=== PATIENT | male | born 1980 | race African-American/Black ===

== ENCOUNTER 2022-12-11 09:59 | Emergency (ER) | payer OTHER ==
[~2022-12-11] VITALS: Ht 182.9 cm; Wt 99.0 kg
[2022-12-11 10:04] VITALS: TEMP 98.2; O2SAT 99
[2022-12-11 10:41] VITALS: BP 112/61; PULSE 76; RESP 14
[2022-12-11 11:02] LABS: BASOPHILS % 0.5 % (0.0-2.0); EOSINOPHILS % 2.7 % (0.0-5.0); LYMPHOCYTES % 18.9 % (20.0-50.0); MEAN CORPUSCULAR HEMOGLOBIN 15.8 pg (28.0-32.0); MEAN CORPUSCULAR HGB CONC 28.7 g/dL (31.0-37.0); MEAN PLATELET VOLUME 8.4 fl (7.4-10.4); MONOCYTES % 6.3 % (2.0-8.0); NEUTROPHILS % 71.6 % (40.0-76.0); PLATELET 202 x1000/uL (130-400); RED BLOOD CELL COUNT 1.88 mill/uL (4.7-6.1); RED CELL DISTRIBUTION WIDTH 22.3 % (11.6-14.6); WHITE BLOOD COUNT 5.9 x1000/uL (4.5-11.0)
[2022-12-11 11:14] LABS: CHLORIDE 108 mEq/L (98-107); INDEX HEMOLYSI 1 (1-3); INDEX ICTERIC 1 (1-4); INDEX LIPEMIC 1 (1-3); POTASSIUM 3.7 mEq/L (3.5-5.1); SODIUM 139 mEq/L (136-145)
[2022-12-11 11:20] LABS: ADD RBC MORPHOLOGY YES; DIFFERENTIAL COMMENT 1; HEMATOCRIT. 10.4 % (42.0-52.0)
[2022-12-11 11:25] LABS: ALANINE AMINOTRANSFERASE 10 IU/L (13-61); ALBUMIN 3.1 g/dL (3.4-5.0); ASPARTATE AMINOTRANSFERASE 31 IU/L (15-37); BILIRUBIN TOTAL 0.3 mg/dL (0.1-1.0); CALCIUM 8.6 mg/dL (8.5-10.1); CARBON DIOXIDE 29 mEq/L (21-32); CREATININE 0.9 mg/dL (0.6-1.3); GLUCOSE 103 mg/dL (70-105); TROPONIN I HIGH SENSITIVITY 50 ng/L (<78); UREA NITROGEN BLOOD 17 mg/dL (7-21)
[2022-12-11 11:42] LABS: ANISOCYTOSIS 3+; MICROCYTOSIS 3+; PLATELET ESTIMATE NORMAL
[2022-12-11 11:43] LABS: HYPOCHROMASIA 2+
== END 2022-12-11 12:16 | disposition home or self-care (01) ==
LOC: ER 09:59 → CANBEDREQ 22:12
DX: D64.9 Anemia, unspecified (principal)
CPT/HCPCS: 80053; 85025; 84484; 36415; 71045; 99284; Z7610